=== PATIENT | male | born 1955 | race Caucasian/White ===

== ENCOUNTER → 2023-01-03 14:57 | Outpatient (CLI) | payer MEDICARE, SELFPAY ==
--- NOTE | ~2023-01-03 | US_ITS ---
EXAMINATION: US scrotum doppler DATE: 01/03/2023 15:28 INDICATION: Testicular swelling TECHNIQUE: Testicular sonogram utilizing grayscale and Doppler COMPARISON: None. FINDINGS: The right testis measures 3.8 x 2.1 x 2.3 cm. The left testis measures 3.0 x 2.4 x 3.0 cm. There is normal vascular flow to both testes. The right epididymis contains an 8 mm cyst or spermatoc stephanie. The left epididymis contains cysts or spermatoceles measuring up to 1.6 cm. There is an approxim ately 7.1 x 3.8 cm left hydrocele with thin internal septation. IMPRESSION: 1. Complex left hydrocele with thin internal septation. Reviewed, dictated and finalized at location B. GER CODE
== END ==
PROVIDERS: PCP Family Medicine; Visit Provider Family Medicine
DX: N43.3 Hydrocele, unspecified (principal); N50.89 Other specified disorders of the male genital organs
CPT/HCPCS: 76870; 93976

== ENCOUNTER 2025-03-03 13:37 | Outpatient (CLI) | payer MEDICARE, MEDICAID, SELFPAY ==
--- NOTE | 2025-03-03 13:57 | ECG_ITS ---
Test Date: 2025-03-03 14:06:03 Measurements Intervals [place] Rate: 72 P: 80 IA: 153 QRS: 70 QRSD: 105 T: 75 QT: 361 QTc: 396 Interpretive Statements SINUS RHYTHM WITH OCCASIONAL VENTRICULAR PREMATURE COMPLEXES BASELINE ARTIFACT- I, III, AVR, AVL, AVF, V4-V6 BORDERLINE ECG No previous ECG available for comparison Electronically Signed On 03-03-2025 14:10:45 CDT by Jasen Zuluaga D.O.
--- OUTSIDE RECORDS SUMMARY | 2025-03-03 14:12 | XMS_ITS | Clinical Summary ---
Author Organization [facility] Address [address] [place] [address] Care Team Providers Care Bank Note Designer Name Role Phone Mari Teresa PA-C Primary Care Provider [phone] Allergies Active Allergy Reactions Criticality Noted Date Comments Fluticasone-Salmeterol Throat swelling Medium 08/05/20 23 Fluticasone-Salmeterol Shortness of Breath High 10/25 Medications albuterol sulfate HFA 108 (90 Base) MCG/ACT inhalerIndicatio ns:SOB Inhale 1 puff into the lungs every 4 (four) hours as needed for Shortness of breath or Wheezing. Indications: SOB 2 Active aspirin 81 MG tabletIndication s:Antiplatelet Take 1 tablet (81 mg total) by mouth daily. Indications: Antiplatelet Active TRELEGY ELLIPTA 100-62.5-25 MCG/ACT AEROSOL POWDER, BREATH ACTIVATEDIndicat ions:COPD Inhale 1 puff into the lungs daily. Indications: COPD 2 Active ipratropium (ATROVENT) 0.06 % nasal sprayIndications :COPD 2 sprays by Nasal route 2 (two) times daily. Indications: COPD 2 Active ALPRAZolam (XANAX) 0.5 MG tabletIndication s:Anxiety Take 1 tablet (0.5 mg total) by mouth 2 (two) times daily as needed for Anxiety. Indications: Anxiety 3 Active ipratropium-albu terol (DUONEB) 0.5-2.5 (3) MG/3ML SolutionIndicati ons:COPD Take by nebulization every 4 (four) hours as needed (SOB). Indications: COPD Active azithromycin (ZITHROMAX) 500 mg tabletIndication s:TB Take 1 tablet (500 mg total) by mouth 3 (three) times a week. Indications: TB RESUME USUAL REGIMEN ON 08/27/2023 M-W-F 5 tablet 3 Active predniSONE (DELTASONE) 10 mg tabletIndication s:COPD Take 1 tablet (10 mg total) by mouth daily. Indications: COPD 3 Active tamsulosin (FLOMAX) 0.4 MG CapIndications:R etention Take 1 capsule (0.4 mg total) by mouth 2 (two) times a day. 60 capsule 3 Active Additional Information Patient taking differently:0.4 mg OralDaily, Indications: Retention , Reported on 11/15/2024 gabapentin (NEURONTIN) 300 MG capsuleIndicatio ns:neuropathy Take 1 capsule (300 mg total) by mouth 3 (three) times daily. 90 capsule 3 Active Additional Information Patient taking differently:300 mg OralDaily, Indications: neuropathy, Reported on 11/03/2024 guaiFENesin ER (MUCINEX) 600 MG 12 hr tabletIndication s:Congestion Take 1 tablet (600 mg total) by mouth 2 (two) times daily as needed for Congestion. 28 tablet 3 Active roflumilast (DALIRESP) 500 MCG TabIndications:C OPD, exacerbation Take 1 tablet (0.5 mg total) by mouth daily. Indications: COPD, exacerbation 3 Active ferrous sulfate EC 324 (65 Fe) MG tablet Take 1 tablet (324 mg total) by mouth daily with breakfast. 30 tablet 4 Active Additional Information Patient taking differently: 325 mgOral Daily with breakfast,Takes 2 tabs daily, Reported on 11/15/2024 vitamin C (ASCORBIC ACID) 1000 MG tablet Take 1 tablet (1,000 mg total) by mouth daily. Active pantoprazole EC (PROTONIX) 40 MG tablet Take 1 tablet (40 mg total) by mouth every morning. 4 Active Active Problems Problem Noted Date Diagnosed Date Iron deficiency anemia due to chronic blood loss 07/09/2024 Epigastric pain 07/09/2024 Heartburn 07/09/2024 Urinary retention 09/02/2023 Overview (09/02/2023): Added automatically from request for surgery [id number] Physical deconditioning 08/09/2023 Ataxia 08/05/2023 Encephalopathy 08/04/2023 Influenza A 10/21/2022 Medication management 04/30/2016 Multiple pulmonary nodules 08/15/2015 Hypertriglyceridemia 2015 Cervical radiculopathy 12/08/2012 Prediabetes 12/08/2012 Asthma ([facility]) 11/27/2012 Chronic obstructive pulmonary disease ([facility]) 11/27/2012 Resolved Problems Problem Noted Date Diagnosed Date Resolved Date Encounter for preventive health examination 10/20/2012 10/28/2022 Encounters Date Type Department Care Team Description 02/22/2025 Transcribe Orders [facility] Pre Access Team [address] [place] [address] Manny Cash MD 02/22/2025 Transcribe Orders [facility] Pre Access Team [address] [place] [address] Manny Cash MD 02/21/2025 Transcribe Orders [facility] Pre Access Team [address] [place] [address] Manny Cash MD from Last 3 Months Immunizations Name Administration Dates Next Due Fluzone 6 Months+ Quad (0.5 mL Prefilled Syringe) 10/25/2022(Deferred: - Received order to not give at this time fromDara Dolt R/T pt dx infuenza A and taking tamaflu.) Family History Medical History Relation Comments Cancer Brother throat cancer in remission (lymph nodes removed) Brother Cancer Father Cancer Maternal Grandfather Cancer Maternal Grandmother Cancer Mother Heart Disease Other Cancer Paternal Grandfather Cancer Paternal Grandmother Cancer Sister Relation Status Comments Brother Alive Father Maternal Grandfather Maternal Grandmother Mother Other Paternal Grandfather Paternal Grandmother Sister Social History Tobacco Use Types Packs/Day Years Used Date Smoking Tobacco: Former Cigarettes Q uit: 2020 Tobacco Cessation:Counseling Given: Not Answered Alcohol Use Standard Drinks/Week Comments Not Currently 0 (1 standard drink = 0.6 oz pur e alcohol) no drink for 4 yrs. OASIS D0700: Social Isolation Answer Da te Recorded Frequency of experiencing loneliness or isolatio n Never 09/10/2023 OASIS A1250: Transportation Answer Date Recorded Lack of Transportation (Medical) No 09/10/2023 Lack of Transportation (Non-Medical) No 09/10/2023 Patient Unable or Declines to Respond No 09/10/2023 OASIS B1300: Health Literacy Answer Oneil e Recorded Frequency of needing help to read materials from doctor or pharmacy Never 09/10/2023 Humiliation, Afraid, Rape, and Kick questionnair e Answer Date Recorded Within the last year, have y ou been afraid of your partner or ex-partner? No 08/05/2023 Within the last year, have y ou been humiliated or emotionally abused in other ways by your partner or ex-partner? No Within the last year, have y ou been kicked, hit, slapped, or otherwise physically hurt by your partner or ex-partner? No 08/05/2023 Within the last year, have y ou been raped or forced to have any kind of sexual activity by your partner or ex-partner? No 08/05/2023 Overall Financial Resource Strain (CARDIA) Answe r Date Recorded How hard is it for you to pa y for the very basics like food, housing, medical care, and heating? Hard 08/08/2023 PHQ-2 Answer Date Recorded Patient Health Questionnaire-2 Score 0 09/05/2023 Hunger Vital Sign Answer Date Recorded Within the past 12 months, y ou worried that your food would run out before you got the money to buy more. Often true Within the past 12 months, t he food you bought just didn't last and you didn't have money to get more. Sometimes true PRAPARE - Transportation Answer Date Re corded In the past 12 months, has l ack of transportation kept you from medical appointments or from getting medications? No 07/25 In the past 12 months, has l ack of transportation kept you from meetings, work, or from getting things needed for daily living? No 08/08/2023 Housing Stability Vital Sign Answer Oneil e Recorded In the last 12 months, was t here a time when you were not able to pay the mortgage or rent on time? Yes 08/08/2023 In the last 12 months, how many places have you lived? 1 08/08/2023 In the last 12 months, was t here a time when you did not have a steady place to sleep or slept in a skilled nursing (including now)? No 08/08/2023 Sex and Gender Information Value Date Recorded Sex Assigned at Not on file Legal Sex Male 4:06 PM CDT Gender Identity Not on file Sexual Orientation Not on file Last Filed Vital Signs Vital Sign Reading Time Taken Comments Blood Pressure 134/94 11/15/2024 11:41 AM [facility] Pulse 72 11/15/2024 11:41 AM [facility] Temperature 37.3 C (99.2 F) 11/15/2024 10:02 AM [facility] Respiratory Rate 20 11/15/2024 11:41 AM [facility] Oxygen Saturation 99% 11/15/2024 11:41 AM [facility] Inhaled Oxygen Concentration - - Weight 78.9 kg (174 lb) 11/15/2024 10:02 AM [facility] Height 177.8 cm (5' 10 ) 11/15/2024 10:02 AM [facility] Body Mass Index 24.97 11/15/2024 10:02 AM [facility] Plan of Treatment Health Maintenance Due Date Last Done Comments Pneumococcal Vaccine: 65+ Years (1 of 2 - PCV) 1962 Hepatitis C 1974 DTaP, Tdap and Td Vaccines ( 1 - Tdap) 1975 Zoster Vaccines (1 of 2) 2006 RSV Immunization or 60+ Years (1 - Risk 60-74 years 1-dose series) 2016 Annual Medicare Wellness Visit 2021 COVID-19 Vaccine (1 - 2023-2 5 season) 2024 PHQ-2 (Physician [place]) 11/24/2024 09/05/2023 Colorectal Cancer Screening Colonoscopy (10 Years) 07/22/2034 07/22/2024 AAA SCREENING Completed 08/04/2023 Colorectal Cancer Screening FIT/FOBT (1 Year) Discontinued 08/14/2023, 07/22/2023 Meningococcal B Vaccine Aged Out No l onger eligible based on patient's age to complete this topic Meningococcal Vaccine Aged Out No amisha tim eligible based on patient's age to complete this topic RSV Immunizations Under 20 Months Aged Out No longer eligible based on patient's age to complete this topic Medical Devices Implanted Type Area Software Sales Device Identifier Shelf Expiration Date Model / Serial / Lot Iol [employer] Simplicity Dcb00 - [id number] Implanted:Qty: 1 on 10/18/2024 by Timothy Olmedo MD at [facility] Lens Right: Eye [employer] 05/10/2027 DCB00 / [id number] / Tecnis 1-Piece Iol With [employer] Simplicity Delivery System Implanted:Qty: 1 on 11/15/2024 by Timothy Olmedo MD at [facility] Lens Left: Eye [employer] [id number] 07/13/2026 / [id number] / Procedures Procedure Name Priority Date/Time Associated Diagnosis Comments OCCULT BLOOD, FECES Routine 08/14/2023 7 :51 AM CDT CTA CHEST+ABD+PEL STAT 08/04/2023 6:0 3 PM CDT SOB (shortness of breath) from Last 3 Months or Most Recently Relevant to Health Maintenance Results * OCCULT BLOOD, FECES (08/14/2023 7:51 AM CDT) OCCULT BLOOD FECAL NEGATIVE NEGATIVE 08/14/2023 10:03 AM CDT [facility] STOOL SPECIMEN / Unknown 08/14/2023 7:51 AM CDT us Anderson Garcia MD BODY FLUIDS AND STOOLS ORDERAB LES Final Result [facility] [address] [place] [address], [place] [phone] * CTA CHEST+ABD+PEL (08/04/2023 6:03 PM CDT) Anatomical Region Laterality Modality Chest, Abdomen, Pelvis Computed Tomography 12/13/2023 7:18 PM [facility] Impressions 12/13/2023 7:28 PM [facility] IMPRESSION: 1. Postoperative changes of partial right upper lobe pneumonectomy with chronic pleural parenchymal scarring in the right upper lobe. 2. Emphysematous bullous change, resection cavity, versus other nonspecific cavitary lesion in the posterior right upper lobe near the apex. 3. A 10 mm noncalcified nodule in the posterior right upper lobe inferior to the resection cavity, indeterminate for neoplasm versus infectious/inflammatory process. 4. Additional 4 mm, 10 mm, at 14 mm noncalcified pulmonary nodules in the left upper lobe, post infectious/post inflammatory versus neoplastic. Pulmonary metastasis are not excluded. There are also calcified granulomas in the left upper lobe and superior segment of left lower lobe. 5. No pathologic adenopathy is seen in the chest, abdomen, or pelvis. 6. Mild atherosclerotic calcifications of the thoracic and abdominal aorta and its distal branches as noted above, with no hemodynamically significant stenosis and no aneurysm. 7. Diffuse hepatic steatosis. 8. Slight prolapse of the posterior central bladder wall versus small cystocele or small diverticulum or pseudodiverticulum of the posterior inferior central bladder wall. Borderline thickening of the bladder wall in the dome of the bladder. Mild median lobe hypertrophy of the prostate; please correlate with PSA levels. 9. Patient reports that the other findings. This CT exam was performed using one or more of the following dose reduction techniques: automated exposure control, adjustment of the mA and/or kV according to patient size, and/or use of iterative reconstruction technique. Referred By: Interpreted By: Clara Molina MD, 12/13/2023 7:18 PM Narrative 12/13/2023 7:28 PM [facility] EXAMINATION: CTA Chest, and CTA Abdomen and Pelvis with Intravenous Contrast, Axial Imaging with Coronal and Sagittal 2-D and 3-D MIPreconstructions. 3D Volume Rendered Images were also obtained. 75 mL Isovue-370 was administered intravenously for the post-contrast images. The final report for your radiology exam was delayed due to a prolonged systemwide outage of the hospital information technology infrastructure. The necessary components to render a final report utilizing a secure and persistent connection to the hospital information technology infrastructure within the usual parameters as guided by current standards of care were significantly limited or unavailable. These components include but are not limited to: all images for the exam, medical grade display monitor, medical grade display software, image post-processing software, prior examinations, prior reports, access to your medical records, dictation software, and a DICOM signature to ensure validity. INDICATION: History of partial right pneumonectomy with resection of right upper lobe. Shortness of breath, chills, altered mental status. COMPARISON: Portable AP chest x-ray 08/04/2023. CTA CHEST FINDINGS: Postoperative changes of partial right upper lobe pneumonectomy with partial surgical resection of the right posterior lateral fifth rib. Emphysematous bullous change versus a 4.5 x 2.5 cm resection cavity versus other cavitary lesion posteriorly in the right upper lobe near the apex. A 10 mm noncalcified nodule in the posterior right upper lobe inferior to the resection cavity that is best seen on axial series 8 images 40-42, sagittal series 7 images 1 15-26, indeterminate for neoplasm versus infectious/inflammatory process. Chronic pleural parenchymal scarring posteriorly in the right upper lobe. There is an indeterminate noncalcified 10 mm nodular density in the posterior medial left upper lobe on axial series 5 image 27, neoplasm versus inflammatory process. There is also a 14 mm noncalcified subpleural nodular density in the left upper lobe on axial series 8 image 40, sagittal series 7 image 263, neoplasm versus infectious/inflammatory process. There is a smaller 4 mm nonspecific, noncalcified pulmonary nodule in the posterior medial subpleural left upper lobe on axial series 8 image 30. There is a calcified granuloma in the posterior medial superior segment of left lower lobe. There are several calcified granulomas in the left upper lobe measuring up to 7 mm in size. No acute infiltrate, consolidation, pleural effusion, or pneumothorax. Thyroid gland appears unremarkable. No pathologic adenopathy is seen in the chest. Heart size is normal with no pericardial effusion. Aorta is age-appropriate without aneurysm, with mild atherosclerotic calcifications of the thoracic aorta and proximal great vessels. CTA ABDOMEN AND PELVIS FINDINGS: Vascular Findings: No acute vascular injury or extravasation. Mild atherosclerotic calcifications in the abdominal aorta and iliac arteries without aneurysm. Celiac axis: Mild atherosclerotic plaque in the origin and proximal few millimeters of the celiac artery with less than 50% stenosis. Superior mesenteric artery: No significant plaque or stenosis. Inferior mesenteric artery: No significant stenosis. Right renal artery: Minimal calcified plaque at or near its origin with no significant stenosis. Left renal artery: Minimal calcified plaque at or near its origin with no significant stenosis. Nonvascular Findings: Diffuse hepatic steatosis. Gallbladder is surgically absent, with no significant biliary dilatation. Spleen, pancreas, bilateral adrenals, and kidneys are normal. Slight prolapse of the posterior central bladder wall versus a small cystocele or small diverticulum versus a diverticulum of the posterior bladder wall. Borderline thickening of the bladder wall in the fundus of the urinary bladder. Mild medial hypertrophy of the prostate, slightly indenting the posterior bladder base. No significant bowel wall thickening or obstruction. The appendix is normal. Tiny miniscule fat-containing ventral periumbilical hernia, of doubtful clinical significance. Tiny fat-containing left inguinal hernia. No ascites or adenopathy. Slight degenerative anterior listhesis of L4 on L5. Arthritic changes in bilateral hips and a lateral lower sacroiliac joints. No acute osseous abnormality. Procedure Note Clara Molina MD - 12/13/2023 EXAMINATION: CTA Chest, and CTA Abdomen and Pelvis with IntravenousContrast, Axial Imaging with Coronal and Sagittal 2-D and 3-DMIPreconstructions. 3D Volume Rendered Images were also obtained. 75 mLIsovue-370 was administered intravenously for the post-contrast images. The final report for your radiology exam was delayed due to a prolongedsystemwide outage of the hospital information technology infrastructure.The necessary components to render a final report utilizing a secure andpersistent connection to the hospital information technologyinfrastructure within the usual parameters as guided by current standardsof care were significantly limited or unavailable. These componentsinclude but are not limited to: all images for the exam, medical gradedisplay monitor, medical grade display software, image post-processingsoftware, prior examinations, prior reports, access to your medicalrecords, dictation software, and a DICOM signature to ensure validity. INDICATION: History of partial right pneumonectomy with resection of rightupper lobe. Shortness of breath, chills, altered mental status. COMPARISON: Portable AP chest x-ray 08/04/2023. CTA CHEST FINDINGS: Postoperative changes of partial right upper lobe pneumonectomy withpartial surgical resection of the right posterior lateral fifth rib.Emphysematous bullous change versus a 4.5 x 2.5 cm resection cavity versusother cavitary lesion posteriorly in the right upper lobe near the apex.A 10 mm noncalcified nodule in the posterior right upper lobe inferior tothe resection cavity that is best seen on axial series 8 images 40-42,sagittal series 7 images 1 15-26, indeterminate for neoplasm versusinfectious/inflammatory process. Chronic pleural parenchymal scarringposteriorly in the right upper lobe. There is an indeterminate noncalcified 10 mm nodular density in theposterior medial left upper lobe on axial series 5 image 27, neoplasmversus inflammatory process. There is also a 14 mm noncalcifiedsubpleural nodular density in the left upper lobe on axial series 8 image40, sagittal series 7 image 263, neoplasm versus infectious/inflammatoryprocess. There is a smaller 4 mm nonspecific, noncalcified pulmonarynodule in the posterior medial subpleural left upper lobe on axial series8 image 30. There is a calcified granuloma in the posterior medialsuperior segment of left lower lobe. There are several calcifiedgranulomas in the left upper lobe measuring up to 7 mm in size. No acuteinfiltrate, consolidation, pleural effusion, or pneumothorax. Thyroid gland appears unremarkable. No pathologic adenopathy is seen inthe chest. Heart size is normal with no pericardial effusion. Aorta isage-appropriate without aneurysm, with mild atherosclerotic calcificationsof the thoracic aorta and proximal great vessels. CTA ABDOMEN AND PELVIS FINDINGS: Vascular Findings: No acute vascular injury or extravasation. Mildatherosclerotic calcifications in the abdominal aorta and iliac arterieswithout aneurysm. Celiac axis: Mild atherosclerotic plaque in the origin and proximal fewmillimeters of the celiac artery with less than 50% stenosis. Superior mesenteric artery: No significant plaque or stenosis. Inferior mesenteric artery: No significant stenosis. Right renal artery: Minimal calcified plaque at or near its origin with nosignificant stenosis. Left renal artery: Minimal calcified plaque at or near its origin with nosignificant stenosis. Nonvascular Findings: Diffuse hepatic steatosis. Gallbladder issurgically absent, with no significant biliary dilatation. Spleen,pancreas, bilateral adrenals, and kidneys are normal. Slight prolapse ofthe posterior central bladder wall versus a small cystocele or smalldiverticulum versus a diverticulum of the posterior bladder wall.Borderline thickening of the bladder wall in the fundus of the urinarybladder. Mild medial hypertrophy of the prostate, slightly indenting theposterior bladder base. No significant bowel wall thickening or obstruction. The appendix isnormal. Tiny miniscule fat-containing ventral periumbilical hernia, ofdoubtful clinical significance. Tiny fat-containing left inguinal hernia.No ascites or adenopathy. Slight degenerative anterior listhesis of L4on L5. Arthritic changes in bilateral hips and a lateral lower sacroiliacjoints. No acute osseous abnormality. IMPRESSION: 1. Postoperative changes of partial right upper lobe pneumonectomy withchronic pleural parenchymal scarring in the right upper lobe. 2. Emphysematous bullous change, resection cavity, versus othernonspecific cavitary lesion in the posterior right upper lobe near theapex. 3. A 10 mm noncalcified nodule in the posterior right upper lobe inferiorto the resection cavity, indeterminate for neoplasm versusinfectious/inflammatory process. 4. Additional 4 mm, 10 mm, at 14 mm noncalcified pulmonary nodules in theleft upper lobe, post infectious/post inflammatory versus neoplastic.Pulmonary metastasis are not excluded. There are also calcifiedgranulomas in the left upper lobe and superior segment of left lowerlobe. 5. No pathologic adenopathy is seen in the chest, abdomen, or pelvis. 6. Mild atherosclerotic calcifications of the thoracic and abdominalaorta and its distal branches as noted above, with no hemodynamicallysignificant stenosis and no aneurysm. 7. Diffuse hepatic steatosis. 8. Slight prolapse of the posterior central bladder wall versus smallcystocele or small diverticulum or pseudodiverticulum of the posteriorinferior central bladder wall. Borderline thickening of the bladder modesto the dome of the bladder. Mild median lobe hypertrophy of the prostate;please correlate with PSA levels. 9. Patient reports that the other findings. This CT exam was performed using one or more of the following dosereduction techniques: automated exposure control, adjustment of the mAand/or kV according to patient size, and/or use of iterativereconstruction technique. 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 Advance Directives and Living Will 06/09/2024 2:17 PM 03/28/2024 DURABLE P OA FOR HEALTH CARE Advance Directives and Living Will 01/21/2018 12:00 AM POWER OF FACILITIES DIRECTOR FO R HEALTH CARE Advance Directives and Living Will 01/21/2018 12:00 AM POWER OF FACILITIES DIRECTOR FO R HEALTH CARE Advance Directives and Living Will 11/19/2017 12:00 AM POWER OF FACILITIES DIRECTOR FO R HEALTH CARE Advance Directives and Living Will 11/19/2017 12:00 AM POWER OF FACILITIES DIRECTOR FO R HEALTH CARE * Full Code (Latest Code Status on File) Date Activated Date Inactivated Comments 08/08/2023 3:21 PM 08/25/2023 1:59 PM * Full Code Date Activated Date Inactivated Comments 08/08/2023 2:02 PM 08/08/2023 2:59 PM Care Teams Bank Note Designer Relationship Specialty Start Date End Date Mari Teresa PA-C [address] [place] [address] [address] [place] [address] PCP - General PHYSICIAN ANESTHESIOLOGIST/PHYSICIAN 05/28/24
--- OUTSIDE RECORDS SUMMARY | 2025-03-03 14:12 | XMS_ITS | Clinical Summary ---
Author Organization [facility] [address] [facility] Address [address] [place] [address] Care Team Providers Care Hitch Technician Name Role Phone Mari Teresa Primary Care Provider [phone] Allergies Active Allergy Reactions Criticality Noted Date Comments Fluticasone Propion-Salmeterol Shortness of breath High 11/18/2023 Medications azithromycin (ZITHROMAX) 500 mg tablet Take 1 tablet (500 mg total) by mouth 3 (three) times a week 3 Active albuterol HFA (PROVENTIL HFA,VENTOLIN HFA,PROAIR HFA) 90 mcg/actuation inhaler Inhale 1 puff every 4 (four) hours as needed 2 Active ALPRAZolam (XANAX) 0.5 mg tablet Take 1 tablet (0.5 mg total) by mouth 2 (two) times a day Active gabapentin (NEURONTIN) 300 mg capsule TAKE 1 CAPSULE BY MOUTH 3 TIMES A DAY Active ipratropium (ATROVENT) 42 mcg (0.06 %) nasal spray Administer 2 sprays into affected nostril(s) 2 (two) times a day 2 Active ipratropium-alb uteroL (DUO-NEB) 0.5-2.5 mg/3 mL nebulizer solution Inhale every 6 (six) hours as needed Active meclizine (ANTIVERT) 25 mg tablet Take 1 tablet (25 mg total) by mouth 3 (three) times a day 3 Active roflumilast (DALIRESP) 500 mcg tablet Take 1 tablet (500 mcg total) by mouth daily 2 Active tamsulosin (FLOMAX) 0.4 mg extended release capsule Take 1 capsule (0.4 mg total) by mouth 2 (two) times a day 3 Active predniSONE (DELTASONE) 10 mg tablet Take 1-4 tablets (10-40 mg) by mouth daily 3 Active Trelegy Ellipta 100-62.5-25 mcg inhaler USE 1 PUFF BY MOUTH EVERY DAY Active aspirin 81 mg enteric coated tablet Take 1 tablet (81 mg total) by mouth daily Active Active Problems Problem Noted Date Diagnosed Date Sensorineural hearing loss ( SNHL) of left ear with restricted hearing of right ear 11/18/2023 Surgical History Surgery Date Site/Laterality Comments LUNG SURGERY BACK SURGERY Medical History Medical History Date Comments Anxiety COPD (chronic obstructive pulmonary disease) (HC C) Heart disease Heart attack (HCC) Stroke (HCC) HL (hearing loss) Dizziness Family History Medical History Relation Name Comments Cancer Father Cancer Mother Relation Name Status Comments Father Mother Social History Tobacco Use Types Packs/Day Years Used Date Smoking Tobacco: Former Cigarettes Smokeless Tobacco: Never Tobacco Cessation:Counseling Given: Not Answered Personal Safety Answer Date Recorded Getting School Help Needed Not on file 11/03 Sex and Gender Information Value Date Recorded Sex Assigned at Not on file Legal Sex Male 10:03 AM BOATING SAFETY OFFICER Gender Identity Not on file Sexual Orientation Not on file Obstetrics History Last Filed Vital Signs Vital Sign Reading Time Taken Comments Blood Pressure - - Pulse - - Temperature - - Respiratory Rate 20 12/04/2023 9:30 AM BOATING SAFETY OFFICER Oxygen Saturation - - Inhaled Oxygen Concentration - - Weight 73.9 kg (163 lb) 12/04/2023 9:30 AM BOATING SAFETY OFFICER Height 177.8 cm (5' 10 ) 12/04/2023 9:30 AM BOATING SAFETY OFFICER Body Mass Index 23.39 12/04/2023 9:30 AM BOATING SAFETY OFFICER Plan of Treatment Health Maintenance Due Date Last Done Comments Colon Cancer Screening-Colonoscopy 1956 Depression Screening 1956 Fall Risk Assessment 1956 Hepatitis C Screening 1956 Prostate Cancer Screening-PSA 1956 DTaP/Tdap/Td Vaccine (1 - Tdap) 1967 Hepatitis B Screening 1974 Pneumococcal vaccine 65+ (1 of 2 - PCV) 1975 Zoster Vaccine (1 of 2) 2006 Abdominal Aortic Aneurysm (AAA) Screen 2021 Well Visit 65+ 2021 Covid-19 Vaccine ( season) 2024, 02/13/2021 Influenza Vaccine (#1) 2024 11/22/2017 Insurance [employer] CHOICE MEDICARE PPO Care Teams Hitch Technician Relationship Specialty Start Date End Date Mari Teresa PA [address] [place] [address] PCP - General Family Practice 10/31/23
--- OUTSIDE RECORDS SUMMARY | 2025-03-03 14:12 | XMS_ITS | Encounter Summary ---
Author Organization [facility] Address [address] [place] [address] Care Team Providers Care Box Truck Driver Name Role Phone Mari Teresa PA-C Primary Care Provider [phone] Encounter Details Date Type Department Care Team (Late st Contact Info) Description 02/22/2025 Transcribe Orders [facility] Pre Access Team [address] [place] [address] Manny Cash MD [address] [place] [address] Social History Tobacco Use Types Packs/Day Years Used Date Smoking Tobacco: Former Cigarettes Q uit: 2020 Alcohol Use Standard Drinks/Week Comments Not Currently [...] place to sleep or slept in a fci (including now)? No 08/08/2023 Sex and Gender Information Value Date Recorded Sex Assigned at Not on file Legal Sex Male 4:06 PM CDT Gender Identity Not on file Sexual Orientation Not on file documented as of this encounter Functional Status * Are you deaf or do you have serious difficulty hearing Answer Date of Assessment Author Status Yes 08/08/2023 3:10 PM CDT Sada Myers RN Active * Are you blind or do you have serious difficulty seeing, even when wearing glasses? Answer Date of Assessment Author Status Yes 08/08/2023 3:10 PM Sada Munson RN Active * Do you have serious difficulty walking or climbing stairs? Answer Date of Assessment Author Status Yes 08/08/2023 3:10 PM Sada Munson RN Active * Do you have difficulty dressing or bathing? Answer Date of Assessment Author Status Yes 08/08/2023 3:10 PM Sada Munson RN Active * Because of a physical, mental, or emotional condition, do you have difficulty doing errands alone such as visiting a doctor's office or shopping? Answer Date of Assessment Author Status Yes 08/08/2023 3:10 PM Sada Munson RN Active documented as of this encounter Mental Status * Because of a physical, mental, or emotional condition, do you have serious difficulty concentrating, remembering, or making decisions? Answer Entry Date Author Status No 08/08/2023 3:10 PM Sada Munson RN Active documented in this encounter Plan of Treatment Not on file documented as of this encounter Visit Diagnoses Not on filedocumented in this encounter Care Teams Box Truck Driver Relationship Specialty Start Date End Date Mari Teresa PA-C [address] [place], [place] [address] [place] [address] PCP - General PHYSICIAN AOC DIRECTOR INTELLIGENCE OFFICER 05/28/24 documented as of this encounter
--- OUTSIDE RECORDS SUMMARY | 2025-03-03 14:12 | XMS_ITS | Encounter Summary ---
Author Organization [facility] Address [address] [place] [address] Care Team Providers Care Workers Compensation Claims Supervisor Name Role Phone Unavailable Primary Care Provider Unavailabl e Encounter Details Date Type Department Care Team (Late st Contact Info) Description 11/14/2001 Outpatient Historical [facility],NON-PATIENT Social History Tobacco Use Types Packs/Day Years Used Date Smoking Tobacco: Never Assessed Sex and Gender Information Value Date Recorded Sex Assigned at Not on file Legal Sex Male 4:53 AM AIR TOOL OPERATOR Gender Identity Not on file Sexual Orientation Not on file documented as of this encounter Plan of Treatment Not on file documented as of this encounter Visit Diagnoses Not on filedocumented in this encounter
--- OUTSIDE RECORDS SUMMARY | 2025-03-03 14:12 | XMS_ITS | Clinical Summary ---
Author Organization [facility] Address [address] [facility] [address] Attn: Epic Prelude ADT [place] [address] Care Team Providers Care Optical Effects Line Up Person Name Role Phone Unavailable Primary Care Provider Unavailabl e Social History Tobacco Use Types Packs/Day Years Used Date Smoking Tobacco: Never Assessed Sex and Gender Information Value Date Recorded Sex Assigned at Not on file Legal Sex Male 4:53 AM STERILE PROCESSING MANAGER Gender Identity Not on file Sexual Orientation Not on file Plan of Treatment Health Maintenance Due Date Last Done Comments DTAP/TDAP/TD VACCINES (1 - Tdap) 1975 COLORECTAL SCREENING 2001 Colorectal Cancer Screening 2001 FIT-DNA Q 3 years 2001 FIT/FOBT Q 1 year 2001 Flex Sig/CT Colonography Q 5 years 2001 PNEUMOCOCCAL VACCINE 50+ YEARS (1 of 1 - PCV) 07/11/20 06 ZOSTER VACCINE (1 of 2) 2006 INFLUENZA VACCINE (#1) 2024 RSV VACCINE (60+ or ) (1 - 1-dose 75+ series) 2031
--- OUTSIDE RECORDS SUMMARY | 2025-03-03 14:12 | XMS_ITS | Encounter Summary ---
Author Organization [facility] Address [facility] [place] [address] Care Team Providers Care Torch Burner Name Role Phone Gary Mas MD Primary Care Provider [phone] Mari Teresa PA-C Primary Care Provider [phone] Rosalino Henriquez MD Primary Care Provider [phone] Mari Teresa PA-C Primary Care Provider [phone]- [phone] Encounter Details Date Type Department Care Team (Late st Contact Info) Description 04/23/2013 Abstract [facility] CONVERSION [address] [place] [address] , Bharat Rico MD Social History Tobacco Use Types Packs/Day Years [...] Diagnoses Not on filedocumented in this encounter Additional Health Concerns Infection Onset Date Last Indicated Resolved Time COVID-19 Rule Out 12/11/2021 12/11/2021 12/11/2021 11:30 AM HUMAN RESOURCE MANAGER COVID-19 Confirmed 12/11/2021 12/11/2021 12:32 AM HUMAN RESOURCE MANAGER COVID-19 Rule Out 10/21/2022 10/21/2022 10/21/2022 4:37 AM HUMAN RESOURCE MANAGER Influenza - Seasonal 10/21/2022 10/21/2022 023 12:34 AM HUMAN RESOURCE MANAGER COVID-19 Rule Out 10/13/2023 07/20/2023 10/13/2023 4:05 PM HUMAN RESOURCE MANAGER COVID-19 Rule Out 10/14/2023 07/22/2023 10/14/2023 8:09 AM HUMAN RESOURCE MANAGER COVID-19 Rule Out 10/20/2023 08/04/2023 10/20/2023 10:59 AM HUMAN RESOURCE MANAGER documented as of this encounter Care Teams Torch Burner Relationship Specialty Start Date End Date Gary Mas MD [address] [place] [address] PCP - General INTERNAL MEDICINE 11/08/20 06/22/22 Mari Teresa PA-C [address] [place] [address] PCP - General PHYSICIAN WAREHOUSE FORKLIFT OPERATOR 06/23/22 09/08/23 Rosalino Henriquez MD [address] [place] [address] PCP - General FAMILY PRACTICE 09/09/23 05/27/24 Mari Teresa PA-C [address] [place] [address] PCP - General PHYSICIAN WAREHOUSE FORKLIFT OPERATOR 05/28/24 documented as of this encounter
--- OUTSIDE RECORDS SUMMARY | 2025-03-03 14:12 | XMS_ITS | Referral Summary ---
Author Organization [facility] [address] Address [address] [place] [address] Care Team Providers Care Co Founder And Chief Strategy Officer Name Role Phone Mari Teresa Primary Care Provider [phone] Allergies Active Allergy Reactions Criticality Noted Date [...] with restricted hearing of right ear 11/18/2023 Social History Tobacco Use Types Packs/Day Years Used Date Smoking Tobacco: Former Cigarettes Smokeless Tobacco: Never Tobacco Cessation:Counseling Given: Not Answered Personal Safety Answer Date Recorded Getting School Help Needed Not on file 11/03 Sex and Gender Information Value Date Recorded Sex Assigned at Not on file Legal Sex Male 10:03 AM ANIMAL HERDER Gender Identity Not on file Sexual Orientation Not on file Last Filed Vital Signs Vital Sign Reading Time Taken Comments Blood Pressure - - Pulse - - Temperature - - Respiratory Rate 20 12/04/2023 9:30 AM ANIMAL HERDER Oxygen Saturation - - Inhaled Oxygen Concentration - - Weight 73.9 kg (163 lb) 12/04/2023 9:30 AM ANIMAL HERDER Height 177.8 cm (5' 10 ) 12/04/2023 9:30 AM ANIMAL HERDER Body Mass Index 23.39 12/04/2023 9:30 AM ANIMAL HERDER Plan of Treatment Not on file Insurance [employer] CHOICE MEDICARE PPO Care Teams Co Founder And Chief Strategy Officer Relationship Specialty Start Date End Date Mari Teresa PA [address] [place] [id number] PCP - General Family Practice 10/31/23
--- OUTSIDE RECORDS SUMMARY | 2025-03-03 14:12 | XMS_ITS | Encounter Summary ---
Author Organization [facility] Address [address] [place] [address] Care Team Providers Care Digital Hardware Design Engineer Name Role Phone Mari Teresa PA-C Primary Care Provider [phone] Encounter Details Date Type Department Care Team (Late st Contact Info) Description 02/22/2025 Transcribe Orders [facility] Pre Access Team [address] [place] [address] Manny Cash MD [address] [place] [address] Social History Tobacco Use Types Packs/Day Years [...] place to sleep or slept in a fdc (including now)? No 08/08/2023 Sex and Gender [...] on filedocumented in this encounter Care Teams Digital Hardware Design Engineer Relationship Specialty Start Date End Date Mari Teresa PA-C [address] [place], [place] [address] [place] [address] PCP - General PHYSICIAN SPRING FITTER 05/28/24 documented as of this encounter
--- OUTSIDE RECORDS SUMMARY | 2025-03-03 14:12 | XMS_ITS | Encounter Summary ---
Author Organization [facility] Address [facility] [place] [address] Care Team Providers Care Software Development Engineer Name Role Phone Mari Teresa PA-C Primary Care Provider [phone] Rosalino Henriquez MD Primary Care Provider [phone] Mari Teresa PA-C Primary Care Provider [phone] Reason for Visit * Reason Onset Date Comments Advise 08/19/2023 Encounter Details Date Type Department Care Team (Late st Contact Info) Description 08/19/2023 Telephone [facility] Home Care [address] [place] [address] Mari Teresa PA-C [address] [place], [place] [address] [place] [address] Advise Social History Tobacco Use Types Packs/Day Years Used Date Smoking Tobacco: Former Cigarettes Q uit: 2020 Alcohol Use Standard Drinks/Week Comments Not Currently 0 (1 standard drink = 0.6 oz pur e alcohol) Humiliation, Afraid, Rape, and Kick questionnair e [...] housing, medical care, and heating? Hard 08/08/2023 Hunger Vital Sign Answer Date Recorded Within [...] place to sleep or slept in a residential (including now)? No 08/08/2023 Sex and Gender [...] PM CDT Sada Myers RN Active * Do you have serious [...] Last Indicated Resolved Time COVID-19 Rule Out 10/13/2023 07/20/2023 10/13/2023 4:05 PM RN HEMODIALYSIS CHARGE COVID-19 Rule Out 10/14/2023 07/22/2023 10/14/2023 8:09 AM RN HEMODIALYSIS CHARGE COVID-19 Rule Out 10/20/2023 08/04/2023 10/20/2023 10:59 AM RN HEMODIALYSIS CHARGE documented as of this encounter Care Teams Software Development Engineer Relationship Specialty Start Date End Date Mari Teresa PA-C [address] [place] [address] PCP - General PHYSICIAN LUGGAGE LINER 06/23/22 09/08/23 Rosalino Henriquez MD [address] [place] [address] PCP - General FAMILY PRACTICE 09/09/23 05/27/24 Mari Teresa PA-C [address] [place] [address] PCP - General PHYSICIAN LUGGAGE LINER 05/28/24 documented as of this encounter
== END 2025-03-03 13:38 | disposition home or self-care (01) ==
PROVIDERS: PCP Physician Assistant Medical; Visit Provider Anesthesiology
DX: R94.31 Abnormal electrocardiogram [ECG] [EKG] (principal); I25.10 Atherosclerotic heart disease of native coronary artery without angina pectoris; J44.9 Chronic obstructive pulmonary disease, unspecified
CPT/HCPCS: 93005

== ENCOUNTER 2025-03-08 00:07 | Day surgery (SDC) | payer MEDICARE, MEDICAID, SELFPAY ==
[2025-03-02 14:27] VITALS: BMI 26.2
--- NOTE | 2025-03-02 14:59 | PC.NURSE ---
Report to the Outpatient Waiting Room, entrance under the green pavilion located off [facility], at time __1000am on date __03/08/25 . Planned Procedure Time: ___1200pm .? Time changes happen often and if your time is changed the preop area will call you the afternoon before. - You and your visitor will be asked to self-screen and do not enter if you have any COVID symptoms. Please call surgeon if you need to reschedule. - A mask is optional within the hospital at this time. Patients may have clear liquids (water, carbonated beverages, clear teas, apple juice) until 3 hours prior to surgery with a maximum of 20 ounces. - No food from midnight until time of surgery and no smoking, or chewing tobacco (or any form of nicotine). No chewing gum, candy or mints. (0900am) Take only the following medications with a SIP of water on the morning of surgery: ___Alprazolam, Prednisone, Trilegy, Albuteral, Nebs and Nasal Beebe if needed ___ DO NOT STOP ANY OF YOUR OTHER PRESCRIPTION MEDICATIONS PRIOR TO SURGERY EXCEPT THE FOLLOWING Hold all vitamins and supplements for 3 days per anesthesiologist.Date to take last dose is 03/04/25 Medications to discontinue per physician Aspirin and NSAIDS till post op per Date to take last dose__03/02/25 Please no make-up, nail sinhala, hairspray, perfume, deodorant, or body powder the day of surgery.? No jewelry (including any body piercings) or valuables the day of surgery, leave them at home.? Please take a shower or bath the night before, or the morning of, surgery with an antibacterial soap.? Wear comfortable, loose fitting clothing.? - Jewelry must be removed prior to entering the operating room.? Rings and piercings that are not removed may be cut off. - The hospital will not accept responsibility for valuables.? - Please leave all valuables, including medications, at home the day of surgery. If you are going home after surgery, a licensed local combination truck driver must drive you home.? PT is aware to get a ride to and from from a friend due to anesthesia. - NO public transportation without another adult if you receive anesthesia. - We recommend that an adult stay with you for 24 hours following discharge. - We also recommend that you do not drive, make important decision, drink alcoholic beverages, or take any drugs that were not prescribed by your health care provider for at least 24 hours after your discharge time. Follow any additional instructions given to you from your surgeon. Telephone instructions given to ___Patient and asked if any additional questions and then verbalized understanding. Patient advised to call surgeon office or pre surgery nurse liaison [phone] if any additional questions.
[2025-03-08] VITALS (17 sets, daily range): BP systolic 113–176; BP diastolic 67–94; PULSE 61–77; RESP 14–20; TEMP 36.6–37.3; O2SAT 95–98
--- OUTSIDE RECORDS SUMMARY | 2025-03-08 00:12 | XMS_ITS | Encounter Summary ---
Author Organization [facility] Address [address] [place] [address] Care Team Providers Care Feeder Operator Automatic Name Role Phone Mari Teresa PA-C Primary Care Provider [phone] Encounter Details Date Type Department Care Team (Late st Contact Info) Description 02/22/2025 Transcribe Orders [facility] Pre Access Team [address] [place] [address] Manny Cash MD [address] [place] [address] Social History Tobacco Use Types Packs/Day Years [...] place to sleep or slept in a intermediate (including now)? No 08/08/2023 Sex and Gender [...] on filedocumented in this encounter Care Teams Feeder Operator Automatic Relationship Specialty Start Date End Date Mari Teresa PA-C [address] [place], [place] [address] [place] [address] PCP - General PHYSICIAN MAORI LIAISON ADVISER 05/28/24 documented as of this encounter
--- OUTSIDE RECORDS SUMMARY | 2025-03-08 00:12 | XMS_ITS | Encounter Summary ---
Author Organization [facility] Address [address] [place] [address] Care Team Providers Care Rn Family Name Role Phone Unavailable Primary Care Provider Unavailabl e Encounter Details Date Type Department Care Team (Late st Contact Info) Description 11/14/2001 Outpatient Historical HIS LAB,NON-PATIENT Social History Tobacco Use Types Packs/Day Years Used Date Smoking Tobacco: Never Assessed Sex and Gender Information Value Date Recorded Sex Assigned at Not on file Legal Sex Male 4:53 AM SUPERINTENDENT DISTRIBUTION Gender Identity Not on file Sexual Orientation Not on file documented as of this encounter Plan of Treatment Not on file documented as of this encounter Visit Diagnoses Not on filedocumented in this encounter
--- OUTSIDE RECORDS SUMMARY | 2025-03-08 00:12 | XMS_ITS | Encounter Summary ---
Author Organization [facility] Address [facility] [place] [address] Care Team Providers Care Patch Press Operator Name Role Phone Gary Mas MD Primary Care Provider [phone] Mari Teresa PA-C Primary Care Provider [phone] Rosalino Henriquez MD Primary Care Provider [phone] Mari Teresa PA-C Primary Care Provider [phone] Encounter Details Date Type Department Care Team (Late st Contact Info) Description 04/23/2013 Abstract [facility] CONVERSION [address] [place] [address] , Bharat Rico MD Social [...] Rule Out 12/11/2021 12/11/2021 12/11/2021 11:30 AM VIDEO INTERN COVID-19 Confirmed 12/11/2021 12/11/2021 12:32 AM VIDEO INTERN COVID-19 Rule Out 10/21/2022 10/21/2022 10/21/2022 4:37 AM VIDEO INTERN Influenza - Seasonal 10/21/2022 10/21/2022 023 12:34 AM VIDEO INTERN COVID-19 Rule Out 10/13/2023 07/20/2023 10/13/2023 4:05 PM VIDEO INTERN COVID-19 Rule Out 10/14/2023 07/22/2023 10/14/2023 8:09 AM VIDEO INTERN COVID-19 Rule Out 10/20/2023 08/04/2023 10/20/2023 10:59 AM VIDEO INTERN documented as of this encounter Care Teams Patch Press Operator Relationship Specialty Start Date End Date Gary Mas MD [address] [place] [address] PCP - General INTERNAL MEDICINE 11/08/20 06/22/22 Mari Teresa PA-C [address] [place] [address] PCP - General PHYSICIAN MEDICAID ANALYST 06/23/22 09/08/23 Rosalino Henriquez MD [address] [place] [address] PCP - General FAMILY PRACTICE 09/09/23 05/27/24 Mari Teresa PA-C [address] [place] [address] PCP - General PHYSICIAN MEDICAID ANALYST 05/28/24 documented as of this encounter
--- OUTSIDE RECORDS SUMMARY | 2025-03-08 00:12 | XMS_ITS | Clinical Summary ---
Author Organization [facility] Address [address] [facility] Attn: Epic Prelude ADT [place] [address] Care Team Providers Care Dipper Operator Name Role Phone Unavailable Primary Care Provider Unavailabl e Social History Tobacco Use Types Packs/Day Years Used Date Smoking Tobacco: Never Assessed Sex and Gender Information Value Date Recorded Sex Assigned at Not on file Legal Sex Male 4:53 AM ROUGHENER Gender Identity Not on file Sexual Orientation [...]
--- OUTSIDE RECORDS SUMMARY | 2025-03-08 00:12 | XMS_ITS | Referral Summary ---
Author Organization [facility] [address] [employer] Address [address] [place] [address] Care Team Providers Care Payroll Accounting Clerk Name Role Phone Mari Teresa Primary Care Provider Allergies Active Allergy Reactions Criticality Noted Date [...] on file Legal Sex Male 10:03 AM ASSEMBLER HANDBAGS Gender Identity Not on file Sexual Orientation Not on file Last Filed Vital Signs Vital Sign Reading Time Taken Comments Blood Pressure - - Pulse - - Temperature - - Respiratory Rate 20 12/04/2023 9:30 AM ASSEMBLER HANDBAGS Oxygen Saturation - - Inhaled Oxygen Concentration - - Weight 73.9 kg (163 lb) 12/04/2023 9:30 AM ASSEMBLER HANDBAGS Height 177.8 cm (5' 10 ) 12/04/2023 9:30 AM ASSEMBLER HANDBAGS Body Mass Index 23.39 12/04/2023 9:30 AM ASSEMBLER HANDBAGS Plan of Treatment Not on file Insurance [employer] CHO[employer] MEDICARE PPO Care Teams Payroll Accounting Clerk Relationship Specialty Start Date End Date Mari Teresa PA [address] [place] [address] PCP - General Family Practice 10/31/23
--- OUTSIDE RECORDS SUMMARY | 2025-03-08 00:12 | XMS_ITS | Clinical Summary ---
Author Organization [facility] Address [address] [place] [address] Care Team Providers Care Graduation Coach Name Role Phone Mari Teresa PA-C Primary Care Provider [phone]- [phone] Allergies Active Allergy Reactions Criticality Noted Date [...] (09/02/2023): Added automatically from request for surgery [id number] Physical deconditioning 08/09/2023 Ataxia 08/05/2023 Encephalopathy 08/04/2023 Influenza A 10/21/2022 Medication management 04/30/2016 Multiple pulmonary nodules 08/15/2015 Hypertriglyceridemia 2015 Cervical radiculopathy 12/08/2012 Prediabetes 12/08/2012 Asthma ([facility]) 11/27/2012 Chronic obstructive pulmonary disease ([facility] /[facility]) 11/27/2012 Resolved Problems Problem Noted Date Diagnosed Date Resolved Date Encounter for preventive health examination 10/20/2012 10/28/2022 Encounters Date Type Department Care Team Description 02/22/2025 Transcribe Orders [facility] Pre Access Team [address] [place] [address] Manny Cash MD 02/22/2025 Transcribe Orders [facility] Pre Access Team [address] [place] [address] Manny Cash MD 02/21/2025 Transcribe Orders [facility] Pre Access Team [address] [place] [address] Manny Cash MD from Last 3 Months Immunizations Immunization Administration Dates Next Due Fluzone 6 Months+ [...] place to sleep or slept in a custodial (including now)? No 08/08/2023 Sex and Gender Information Value Date Recorded Sex Assigned at Not on file Legal Sex Male 4:06 PM CDT Gender Identity Not on file Sexual Orientation Not on file Last Filed Vital Signs Vital Sign Reading Time Taken Comments Blood Pressure 134/94 11/15/2024 11:41 AM NAPHTHA WASHING SYSTEM OPERATOR Pulse 72 11/15/2024 11:41 AM NAPHTHA WASHING SYSTEM OPERATOR Temperature 37.3 C (99.2 F) 11/15/2024 10:02 AM NAPHTHA WASHING SYSTEM OPERATOR Respiratory Rate 20 11/15/2024 11:41 AM NAPHTHA WASHING SYSTEM OPERATOR Oxygen Saturation 99% 11/15/2024 11:41 AM NAPHTHA WASHING SYSTEM OPERATOR Inhaled Oxygen Concentration - - Weight 78.9 kg (174 lb) 11/15/2024 10:02 AM NAPHTHA WASHING SYSTEM OPERATOR Height 177.8 cm (5' 10 ) 11/15/2024 10:02 AM NAPHTHA WASHING SYSTEM OPERATOR Body Mass Index 24.97 11/15/2024 10:02 AM NAPHTHA WASHING SYSTEM OPERATOR Plan of Treatment Health Maintenance Due Date Last Done Comments Hepatitis C 1974 DTaP, Tdap and Td Vaccines ( 1 - Tdap) 1975 Pneumococcal Vaccine: 50+ Years (1 of 2 - PCV) 1975 Zoster Vaccines (1 of 2) 2006 RSV Immunization or 60+ Years (1 - Risk 60-74 years 1-dose series) 2016 Annual Medicare Wellness Visit 2021 COVID-19 Vaccine (1 - 2023-2 5 season) 2024 PHQ-2 (Physician [place]) 11/24/2024 09/05/2023 Colorectal Cancer Screening Colonoscopy (10 [...] this topic Medical Devices Implanted Type Area [employer] Producer Device Identifier Shelf Expiration Date Model / Serial / Lot Iol Tecnis Simplicity Dcb00 - [id number] Implanted:Qty: 1 on 10/18/2024 by Timothy Olmedo MD at [facility] Lens Right: Eye [employer] 05/10/2027 DCB00 / [id number] / Tecnis 1-Piece Iol With Tecnis Simplicity Delivery System Implanted:Qty: 1 on 11/15/2024 by Timothy Olmedo MD at [facility] Lens Left: Eye [employer] [id number] 07/13/2026 / [id number] / Procedures Procedure Name Priority Date/Time Associated Diagnosis Comments OCCULT BLOOD, FECES Routine 08/14/2023 7 :51 AM CDT CTA CHEST+ABD+PEL STAT 08/04/2023 6:0 3 PM CDT SOB (shortness of breath) from Last 3 Months or Most Recently Relevant to Health Maintenance Results * OCCULT BLOOD, FECES (08/14/2023 7:51 AM CDT) OCCULT BLOOD FECAL NEGATIVE NEGATIVE 08/14/2023 10:03 AM CDT [facility] STOOL SPECIMEN / Unknown 08/14/2023 7:51 AM CDT us Anderson Garcia MD BODY FLUIDS AND STOOLS ORDERAB LES Final Result [facility] [address] [place] [address], [place] [phone] * CTA CHEST+ABD+PEL (08/04/2023 6:03 PM CDT) Anatomical Region Laterality Modality Chest, Abdomen, Pelvis Computed Tomography 12/13/2023 7:18 PM NAPHTHA WASHING SYSTEM OPERATOR Impressions 12/13/2023 7:28 PM NAPHTHA WASHING SYSTEM OPERATOR IMPRESSION: 1. Postoperative changes of partial right [...] 12/13/2023 7:18 PM Narrative 12/13/2023 7:28 PM NAPHTHA WASHING SYSTEM OPERATOR EXAMINATION: CTA Chest, and CTA Abdomen and [...] Documents on File Type Date Recorded Patient Tree Pruner Expl anation Advance Directives and Living Will 06/09/2024 2:17 PM 03/28/2024 DURABLE P OA FOR HEALTH CARE Advance Directives and Living Will 01/21/2018 12:00 AM POWER OF RIBBON LAP MACHINE TENDER FO R HEALTH CARE Advance Directives and Living Will 01/21/2018 12:00 AM POWER OF [employer] LAP MACHINE TENDER FO R HEALTH CARE Advance Directives and Living Will 11/19/2017 12:00 AM POWER OF [employer] LAP MACHINE TENDER FO R HEALTH CARE Advance Directives and Living Will 11/19/2017 12:00 AM POWER OF [employer]IB[employer] LAP MACHINE TENDER FO R HEALTH CARE * Full Code (Latest Code Status on File) Date Activated Date Inactivated Comments 08/08/2023 3:21 PM 08/25/2023 1:59 PM * Full Code Date Activated Date Inactivated Comments 08/08/2023 2:02 PM 08/08/2023 2:59 PM Care Teams Graduation Coach Relationship Specialty Start Date End Date Mari Teresa PA-C [address] [place] [address] [address] [place] [address] PCP - General PHYSICIAN COMMERCIAL ART INSTRUCTOR 05/28/24
--- OUTSIDE RECORDS SUMMARY | 2025-03-08 00:12 | XMS_ITS | Encounter Summary ---
Author Organization [facility] Address [address] [place] [address] Care Team Providers Care Lead Quality Control Technician Name Role Phone Mari Teresa PA-C Primary Care Provider [phone]- [phone] Encounter Details Date Type Department Care Team (Late st Contact Info) Description 02/22/2025 Transcribe Orders [facility] Pre Access Team [address] [place] [address] Manny Cash MD [address] [place] [address] Social History Tobacco Use Types Packs/Day Years [...] place to sleep or slept in a senior care (including now)? No 08/08/2023 Sex and Gender [...] on filedocumented in this encounter Care Teams Lead Quality Control Technician Relationship Specialty Start Date End Date Mari Teresa PA-C [address] [place], [place] [address] [place] [address] PCP - General PHYSICIAN CLINICAL QUALITY RN 05/28/24 documented as of this encounter
--- OUTSIDE RECORDS SUMMARY | 2025-03-08 00:12 | XMS_ITS | Clinical Summary ---
Author Organization [facility] [address] Address [address] [place] [address] Care Team Providers Care Landfill Gas Collection Operator Name Role Phone Mari Teresa Primary Care Provider [phone] Allergies Active Allergy Reactions Criticality Noted Date [...] on file Legal Sex Male 10:03 AM GRADE FOREMAN Gender Identity Not on file Sexual Orientation Not on file Obstetrics History Last Filed Vital Signs Vital Sign Reading Time Taken Comments Blood Pressure - - Pulse - - Temperature - - Respiratory Rate 20 12/04/2023 9:30 AM GRADE FOREMAN Oxygen Saturation - - Inhaled Oxygen Concentration - - Weight 73.9 kg (163 lb) 12/04/2023 9:30 AM GRADE FOREMAN Height 177.8 cm (5' 10 ) 12/04/2023 9:30 AM GRADE FOREMAN Body Mass Index 23.39 12/04/2023 9:30 AM GRADE FOREMAN Plan of Treatment Health Maintenance Due Date [...] Insurance [employer] MEDICARE PPO Care Teams Landfill Gas Collection Operator Relationship Specialty Start Date End Date Mari Teresa PA [address] [place] [id number] PCP - General Family Practice 10/31/23
--- OUTSIDE RECORDS SUMMARY | 2025-03-08 00:12 | XMS_ITS | Encounter Summary ---
Author Organization [facility] Address [facility] [place] [address] Care Team Providers Care Process Artist Name Role Phone Mari Teresa PA-C Primary Care Provider [phone] Rosalino Henriquez MD Primary Care Provider [phone] Mari Teresa PA-C Primary Care Provider [phone]- [phone] Reason for Visit * Reason Onset Date Comments Advise 08/19/2023 Encounter Details Date Type Department Care Team (Late st Contact Info) Description 08/19/2023 Telephone [facility] Home Care [address] [place] [address] [place] [address] Mari Teresa PA-C [address] [place], [place] [address] [place] [address] Advise Social History Tobacco Use [...] Rule Out 10/13/2023 07/20/2023 10/13/2023 4:05 PM SECURITY TEAM LEAD COVID-19 Rule Out 10/14/2023 07/22/2023 10/14/2023 8:09 AM SECURITY TEAM LEAD COVID-19 Rule Out 10/20/2023 08/04/2023 10/20/2023 10:59 AM SECURITY TEAM LEAD documented as of this encounter Care Teams Process Artist Relationship Specialty Start Date End Date Mari Teresa PA-C [address] [place] [id number] PCP - General PHYSICIAN HOUSE MOVING SUPERVISOR 06/23/22 09/08/23 Rosalino Henriquez MD [address] [place] [address] PCP - General FAMILY PRACTICE 09/09/23 05/27/24 Mari Teresa PA-C [address] [place] [id number] PCP - General PHYSICIAN HOUSE MOVING SUPERVISOR 05/28/24 documented as of this encounter
--- NOTE | 2025-03-08 10:39 | P.PNAN_ITS ---
Anes - Initial Pre Proc Eval Procedure: Operation Date: 03/08/25 10:00 Proposed Procedures p Left Hydrocelectomy with Orchiectomy - Don Knight MD Date/Time: 03/08/25 10:39 Surgeon: Don Knight MD Pre Op Diagnosis: left hydrocele Patient Data Age: 69 Gender: M Height: 1.78 m Weight: 81.2 kg Last Vital Signs Temp 37.3 C 03/08/25 08:10 Pulse 70 03/08/25 08:10 Resp 20 03/08/25 08:10 BP 151/85 H 03/08/25 08:45 Pulse Ox 98 03/08/25 08:10 O2 Del Method Room Air 03/08/25 08:10 Allergies Allergy/AdvReac Type Severity Reaction Status Date / Time fluticasone AdvReac Severe Dyspnea / Verified 03/08/25 08:50 SOB salmeterol AdvReac Severe Dyspnea / Verified 03/08/25 08:50 SOB Home Medications ?Medication ?Instructions ?Recorded ?Confirmed ?Type albuterol sulfate 90 mcg/actuation 1 puff inhalation Q4H PRN 10/29/22 03/08/25 History aerosol inhaler bronchospasm aspirin 81 mg chewable tablet 81 mg PO DAILY 10/29/22 03/08/25 History ipratropium 0.5 mg-albuterol 3 mg 3 ml inhalation Q4H PRN shortness 10/31/22 03/08/25 History (2.5 mg base)/3 mL nebulization of breath or wheezing soln guaifenesin 600 mg tablet, 600 mg PO Q12H PRN congestion 09/22/23 03/08/25 History extended release 12 hr ipratropium bromide 42 mcg (0.06 2 spray intranasal BID #15 mL 10/08/23 03/02/25 Rx %) nasal spray prednisone 10 mg tablet 10 mg PO DAILY #30 tabs 07/19/24 03/08/25 Rx ascorbic acid (vitamin C) 500 mg 500 mg PO BID 09/24/24 03/08/25 History capsule tamsulosin 0.4 mg capsule 0.4 mg PO DAILY #90 caps 01/03/25 03/08/25 Rx alprazolam 0.5 mg tablet 0.5 mg PO BID PRN anxiety #60 tabs 01/17/25 03/08/25 Rx famotidine 20 mg tablet 20 mg PO DAILY 01/31/25 03/08/25 History azithromycin 500 mg tablet 500 mg PO DAILY 03/02/25 03/08/25 History benzonatate 100 mg capsule 100 mg PO Q6H PRN cough 03/02/25 03/08/25 History ferrous sulfate 325 mg (65 mg 650 mg PO DAILY 03/02/25 03/08/25 History iron) tablet fluticasone fur. 100 mcg-umeclid 1 inh inhalation DAILY 03/02/25 03/08/25 History 62.5 mcg-vilant 25 mcg inhalat.powder (Trelegy Ellipta) roflumilast 500 mcg tablet 500 mcg PO .breakfast 03/02/25 03/08/25 History Patient hx anesthesia problems: none Family hx anesthesia problems: none Results Review: All pre-operative results and documents have been reviewed as part of the pre- operative evaluation. [facility] Past Medical History Medical History GERD (gastroesophageal reflux disease) Anxiety SOB (shortness of breath) History of tobacco use BELL (dyspnea on exertion) BPH (benign prostatic hyperplasia) Testicular cyst Myocardial infarction Scrotal swelling Hydrocele Emphysema lung Fungal infection of lung Rheumatic fever CAD (coronary artery disease) Mycobacterial disease Leukocytosis (leucocytosis) COPD (chronic obstructive pulmonary disease) Surgical History Surgical History History of pneumonectomy right upper lobe- 11/14/2001 History of laparoscopic cholecystectomy History of lumbar laminectomy Family History Family History Mother Lung cancer Father Lung cancer Sibling Cancer Grandparent Cancer Grandparent Heart disease Social History Social History Smoking packs per day: 3 Smoking cigarettes per day: 60.0 Years smoked: 46 Smoking pack-years: 138.00 Smoking status: Former smoker Smoking end date: 05/23/00 Alcohol intake: never Alcohol use details: rarely Substance use: never Substance use type: does not use Lack of Transportation: No Lack of Food: Never True Current Housing: I Have Housing Concerned About Future Housing: No Difficulty Paying Gas/Electric Bills: No Difficulty Paying for Meds: No Currently Unemployed: No Difficulty w/ Childcare or Family Care: No Living arrangements: alone Occupation/Education: retired Gender identity (if verbalized by the patient): Male Sexual Orientation (if Verbalized by the Patient): Straight or Heterosexual Spiritual care concerns: No Anes - Eval Final PreProcedure Day of Procedure 03/08/25 10:39 Patient weight: normal Heart: regular rate and rhythm Lungs: decreased breath sounds Airway: Mallampati scale Neurological: alert and oriented Last oral intake: >/= 8 hours ASA classification: IV Emergent: no Anesthetic plan: proceed Anesthesia type and monitoring: regional spinal and standard monitoring Results Review: All pre-operative results and documents have been reviewed as part of the pre- operative evaluation. Informed Consent: The patient's anesthetic plan and its attendant risks and benefits were discussed with the patient/family/POA. Questions were solicited and answers provided to the satisfaction of the patient/family/POA.
--- NOTE | 2025-03-08 10:55 | PM.IMHP ---
H&P: HPI History of Present Illness Date/Time: 03/08/25 10:55 Chief Complaint: Left hydrocele Narrative: 61-year-old male with left hydrocele presents for left hydrocelectomy with orchiopexy Review of Systems Review of Systems: All systems reviewed & are unremarkable except as noted in HPI and below PMFSH Past Medical History Medical History GERD (gastroesophageal reflux disease) Anxiety SOB (shortness of breath) History of tobacco use BELL (dyspnea on exertion) BPH (benign prostatic hyperplasia) Testicular cyst Myocardial infarction Scrotal swelling Hydrocele Emphysema lung Fungal infection of lung Rheumatic fever CAD (coronary artery disease) Mycobacterial disease Leukocytosis (leucocytosis) COPD (chronic obstructive pulmonary disease) Surgical History Surgical History History of pneumonectomy right upper lobe- 11/14/2001 History of laparoscopic cholecystectomy History of lumbar laminectomy Family History Family History Mother Lung cancer Father Lung cancer Sibling Cancer Grandparent Cancer Grandparent Heart disease Social History Social History Smoking packs per day: 3 Smoking cigarettes per day: 60.0 Years smoked: 46 Smoking pack-years: 138.00 Smoking status: Former smoker Smoking end date: 05/23/00 Alcohol intake: never Alcohol use details: rarely Substance use: never Substance use type: does not use Lack of Transportation: No Lack of Food: Never True Current Housing: I Have Housing Concerned About Future Housing: No Difficulty Paying Gas/Electric Bills: No Difficulty Paying for Meds: No Currently Unemployed: No Difficulty w/ Childcare or Family Care: No Living arrangements: alone Occupation/Education: retired Gender identity (if verbalized by the patient): Male Sexual Orientation (if Verbalized by the Patient): Straight or Heterosexual Spiritual care concerns: No Meds Home Medications and Allergies Home Medications ?Medication ?Instructions ?Recorded ?Confirmed ?Type albuterol sulfate 90 mcg/actuation 1 puff inhalation Q4H PRN 10/29/22 03/08/25 History aerosol inhaler bronchospasm aspirin 81 mg chewable tablet 81 mg PO DAILY 10/29/22 03/08/25 History ipratropium 0.5 mg-albuterol 3 mg 3 ml inhalation Q4H PRN shortness 10/31/22 03/08/25 History (2.5 mg base)/3 mL nebulization of breath or wheezing soln guaifenesin 600 mg tablet, 600 mg PO Q12H PRN congestion 09/22/23 03/08/25 History extended release 12 hr ipratropium bromide 42 mcg (0.06 2 spray intranasal BID #15 mL 10/08/23 03/02/25 Rx %) nasal spray prednisone 10 mg tablet 10 mg PO DAILY #30 tabs 07/19/24 03/08/25 Rx ascorbic acid (vitamin C) 500 mg 500 mg PO BID 09/24/24 03/08/25 History capsule tamsulosin 0.4 mg capsule 0.4 mg PO DAILY #90 caps 01/03/25 03/08/25 Rx alprazolam 0.5 mg tablet 0.5 mg PO BID PRN anxiety #60 tabs 01/17/25 03/08/25 Rx famotidine 20 mg tablet 20 mg PO DAILY 01/31/25 03/08/25 History azithromycin 500 mg tablet 500 mg PO DAILY 03/02/25 03/08/25 History benzonatate 100 mg capsule 100 mg PO Q6H PRN cough 03/02/25 03/08/25 History ferrous sulfate 325 mg (65 mg 650 mg PO DAILY 03/02/25 03/08/25 History iron) tablet fluticasone fur. 100 mcg-umeclid 1 inh inhalation DAILY 03/02/25 03/08/25 History 62.5 mcg-vilant 25 mcg inhalat.powder (Trelegy Ellipta) roflumilast 500 mcg tablet 500 mcg PO .breakfast 03/02/25 03/08/25 History Allergies Allergy/AdvReac Type Severity Reaction Status Date / Time fluticasone AdvReac Severe Dyspnea / Verified 03/08/25 08:50 SOB salmeterol AdvReac Severe Dyspnea / Verified 03/08/25 08:50 SOB Vital Signs Vital Signs - 24 hr 03/08/25 08:10 03/08/25 08:45 Temperature 37.3 C Pulse Rate 70 Respiratory Rate 20 Blood Pressure 167/78 H 151/85 H Pulse Oximetry 98 Oxygen Delivery Room Air Exam Const: General: cooperative Resp: Effort & Inspection: normal respiratory effort Cardio: Rate: regular rate Rhythm: regular rhythm : Scrotum: Hydrocele present on the left Assessment and Plan Assessment and plan (1) Hydrocele: Code(s): N43.3 - Hydrocele, unspecified Status: Acute Assessment and Plan: Proceed with left hydrocelectomy with orchiopexy
--- NOTE | 2025-03-08 10:57 | WPDHPUPDATE1 ---
History and Physical Update Update Date/Time: 03/08/25 10:57 History and Physical has been reviewed, including an updated exam of the patient. There are NO changes in the patient's condition. Risks, benefits, and alternatives have been discussed and questions answered. Patient agrees to proceed with procedure.
[2025-03-08] MEDS: ceFAZolin 2 GM/D5W 50 ML 2 GM/50 ML BAG IVPB (11:16)
[2025-03-08] MEDS: BUPivacaine HCL 0.25% PF 30 ML VIAL INFILTRATE (11:16)
--- NOTE | 2025-03-08 12:19 | W.PM.PROC2 ---
Procedure Note - Detailed Date of Procedure 03/08/25 Pre-op Diagnosis left hydrocele Post-op Diagnosis Same Procedure Performed Scrotal exploration with left hydrocelectomy, left orchiopexy, Surgeon Don Knight MD Anesthesia Spinal Description of Procedure Patient is taken to the operative suite correctly identified. Once spinal anesthetic was obtained he was prepped draped usual sterile fashion. Transcranial incision was made on the left hemiscrotum. This was carried down through the tunical layers. The hydrocele was brought out in the operative field. It was loculated with 2 large hydroceles. They were both drained in the excess tissue was excised. The edges were fulgurated. Appendix testes was removed. A quarter-inch Mina drain was then placed through a separate stab incision and secured using 3-0 chromic. An orchiopexy was performed with a three-point fixture using 0 Ethibond. Tunica was closed using 3-0 chromic in a running fashion. Similarly the skin was closed in a running fashion. 0.25% Marcaine was used to anesthetize the skin. Patient tolerated procedure well without complications and was taken recovery stable condition. He was instructed to remove the drain on Friday if there is minimal drainage. He will follow-up in the office in 2-3 weeks time. This completes dictation. Please send a copy of op note my office Estimated Blood Loss 5 Drains Yes Packing No Pathology Yes Complications No immediate complications Condition Stable Disposition PACU
[2025-03-08] MEDS: LACTATED RINGERS 1,000 ML 30 ML IV CONT ×2 (12:25→16:03)
[2025-03-08] MEDS: oxyCODONE HCL (*CRX) 5 MG TAB IR PO (14:53)
[2025-03-08] MEDS: fentaNYL CITRATE INJ (*CRX) 100 MCG/2 ML VIAL 25 MCG IV PUSH ×2 (16:03→16:23)
[2025-03-08] MEDS: IPRATROPIUM 0.5 MG/ALBUTEROL SULFATE 2.5 MG AMPUL.NEB 3 ML INHALATION (16:24)
--- NOTE | 2025-03-08 17:09 | SUR.PHASEII ---
1700: patient voided, getting dressed but otherwise ready for dc.
== END 2025-03-08 17:32 | disposition home or self-care (01) ==
PROVIDERS: PCP Physician Assistant Medical; Visit Provider Urology
PROC: (CPT 55040; principal; 2025-03-08 10:00)
DX: N43.2 Other hydrocele (principal); N40.0 Benign prostatic hyperplasia without lower urinary tract symptoms; K21.9 Gastro-esophageal reflux disease without esophagitis; F41.9 Anxiety disorder, unspecified; I25.2 Old myocardial infarction; J43.9 Emphysema, unspecified; I25.10 Atherosclerotic heart disease of native coronary artery without angina pectoris; D72.829 Elevated white blood cell count, unspecified; Z79.51 Long term (current) use of inhaled steroids; Z79.82 Long term (current) use of aspirin; Z79.52 Long term (current) use of systemic steroids; Z98.890 Other specified postprocedural states; Z98.1 Arthrodesis status; Z90.49 Acquired absence of other specified parts of digestive tract; Z87.891 Personal history of nicotine dependence; Z80.1 Family history of malignant neoplasm of trachea, bronchus and lung; Z82.49 Family history of ischemic heart disease and other diseases of the circulatory system
CPT/HCPCS: 55040; 54640; 88302; 94640; A9270; J0690; J3010; J7120